=== PATIENT | female | born 1975 | race Two or more races ===

== ENCOUNTER 2019-06-23 05:05 | Day surgery (SDC) | payer OTHER ==
[~2019-06-23 05:05] MED LIST: RELAFEN
[2019-06-23] MEDS ORDERED: COLACE100 MG PO (08:39)
[2019-06-23] MEDS ORDERED: PERCOCET 5-3251 EACH PO (08:39)
== END 2019-06-23 14:40 | disposition home or self-care (01) ==
LOC: CIR.AMB 05:05
DX: K60.0 Acute anal fissure (principal); K62.4 Stenosis of anus and rectum; K59.4 Anal spasm
CPT/HCPCS: 46700; 46200; 46505; J0585; 64430